=== PATIENT | female | born 1990 | race Caucasian/White ===

== ENCOUNTER 2017-07-26 14:15 | Emergency (ER) | payer OTHER, SELFPAY | END 2017-07-26 16:42 | disposition home or self-care (01) | PROVIDERS: Emergency Provider Emergency Medicine; Visit Provider Emergency Medicine | DX: M51.36 Other intervertebral disc degeneration, lumbar region (principal) | CPT/HCPCS: 51798; 96372; 99283; J1885 ==

== ENCOUNTER → 2017-10-09 11:49 | Outpatient (CLI) | payer OTHER, SELFPAY ==
--- NOTE | 2017-10-09 | DI.MRI.S_ITS ---
PROCEDURE: MR LUMBAR SPINE WO CON INDICATIONS: LUMBAR DISC HERNIATION TECHNIQUE: Noncontrast sagittal T1 spin echo and T2 fast echo, sagittal STIR, axial T1 and T2 fast spin echo through the lumbar spine. In cases with scoliosis, additional coronal T2 fast spin echo may be performed. COMPARISON: [facility] [place], CR, XR LUMBAR SPINE WITH OLBIQUES PLUS FLEXION EXTENSION, 08/21/2017, 7:59. [facility] Outside Film, MR, MR LUMBAR SPINE WITHOUT CONTRAST, 06/29/2017, 14:15. FINDINGS: Image quality: Excellent. Alignment and Curvature: There is normal bony alignment. Bone Marrow: Marrow is of normal overall signal. No acute vertebral body compression fractures. Spinal Cord: Conus medullaris terminates at the L1-L2 level. Visualized cord demonstrates normal signal and size. Paraspinous Soft Tissues: No paravertebral masses. L1-L2: Normal appearance. L2-L3: Normal appearance. L3-L4: Normal appearance of intervertebral disc. Mild bilateral facet arthropathy. No central canal or foraminal stenosis. L4-L5: Mild to moderate loss of disc height and disc desiccation. There is posterior disc bulge and posterior central annular tear. Mild bilateral facet arthropathy. The central canal is mildly narrowed. Mild bilateral foraminal stenosis. There is no significant change from 06/29/2017. L5-S1: Preserved disc height and disc signal. There is mild posterior disc bulge. Epidural lipomatosis The central canal is patent. No foraminal stenosis.. IMPRESSION: 1. Degenerative disc disease and facet arthropathy in lumbar spine as described. 2. There is posterior disc bulge and posterior central annular tear at L4-L5 as seen on the outside comparison MRI dated 06/29/17. 3. Mild central canal stenosis at L4-L5, unchanged. 4. Mild bilateral foraminal stenosis at L4-L5, unchanged. 5. Epidural lipomatosis and sacrum. Dictated by: Leroy Ly M.D. on 10/09/2017 at 13:08 Approved by: Leroy Ly M.D. on 10/09/2017 at 13:17
== END ==
PROVIDERS: Visit Provider Orthopaedic Surgery
DX: M51.26 Other intervertebral disc displacement, lumbar region (principal); M51.36 Other intervertebral disc degeneration, lumbar region; M47.816 Spondylosis without myelopathy or radiculopathy, lumbar region; M48.061 Spinal stenosis, lumbar region without neurogenic claudication
CPT/HCPCS: 72148

== ENCOUNTER 2017-11-29 08:14 | Emergency (ER) | payer OTHER, SELFPAY ==
--- NOTE | 2017-11-29 08:30 | ED.FEMALEGU ---
HPI - Female Genitourinary General Chief complaint: Urogenital-Female Stated complaint: KIDNEY INFEC GETTING WORSE Time Seen by Provider: 11/29/17 08:17 Source: patient Mode of arrival: ambulatory Limitations: no limitations History of Present Illness HPI Narrative: 27-year-old healthy female presents to the emergency department with a chief complaint of a kidney infection which is not improving. The patient was seen and evaluated at [facility] on Sunday and given a prescription for Bactrim for presumed UTI. She had a follow-up appointment in the emergency department 2 days later when she started developing some nausea. She presents today because she now has chills and ongoing pain as well as nausea. She denies classic urinary symptoms such as dysuria, frequency or urgency. She recently had her IUD removed and teacher of the emotionally disturbed believe she has interstitial cystitis as well MD Complaint: dysuria and UTI Onset (ago): minute(s) Related Data Home Medications Medication Instructions Recorded Confirmed gabapentin 1 cap PO TID PRN 11/29/17 11/29/17 hydrocodone-acetaminophen 1 tab PO PRN PRN 11/29/17 11/29/17 norethindrone-e.estradiol-iron 1 tab PO DAILY 11/29/17 11/29/17 [ FE ()] sertraline 100 mg PO DAILY 11/29/17 11/29/17 sulfamethoxazole-trimethoprim 1 tab PO BID 11/29/17 11/29/17 Previous Rx's Medication Instructions Recorded hydrocodone-acetaminophen 1 tab PO Q4-6H PRN #14 tab 11/29/17 ibuprofen 600 mg PO TID-QID PRN #20 tab 11/29/17 ondansetron [Zofran ODT] 4 mg PO Q6H PRN #14 tab 11/29/17 Allergies Allergy/AdvReac Type Severity Reaction Status Date / Time cefaclor [From CECLOR] AdvReac Intermediate rash Unverified 07/26/17 14:22 Review of Systems Review of Systems All systems reviewed & are unremarkable except as noted in HPI and below Constitutional Denies chills, Denies fever(s), Denies lethargy and Denies weakness Eyes Denies change in vision, Denies eye discharge, Denies irritation and Denies loss of vision ENT Ears, Nose, Mouth, and Throat: Denies change in voice, Denies neck pain and Denies sore throat Cardiovascular Denies chest pain, Denies irregular heart rhythm, Denies lightheadedness, Denies palpitations, Denies dyspnea, Denies dyspnea on exertion and Denies orthopnea Respiratory Denies cough, Denies dyspnea, Denies dyspnea on exertion and Denies wheezing Gastrointestinal Gastrointestinal: Denies abdominal pain, Denies change in bowel habits, Denies diarrhea, Denies nausea and Denies vomiting Genitourinary Denies hematuria, Reports flank pain, Denies urinary incontinence and Denies urinary urgency Musculoskeletal Denies neck pain Integumentary/Breasts Denies pruritus, Denies erythema, Denies rash and Denies wounds Neurologic Denies confusion, Denies loss of vision and Denies weakness Psychiatric Denies anxiety, Denies confusion, Denies depression, Denies homicidal ideation and Denies suicidal ideation Endocrine Denies palpitations Hematologic/Lymphatic Denies easy bruising Allergic/Immunologic Denies wheezing PFSH Social History Smoking Status: Never smoker Exam Initial Vital Signs Initial Vital Signs: Vital Signs Pulse Rate 66 11/29/17 11:41 Respiratory Rate 15 11/29/17 11:41 Blood Pressure 129/65 H 11/29/17 11:41 Pulse Oximetry 100 11/29/17 11:41 Const General: cooperative and well developed Nutritional Appearance: well nourished Orientation: alert, awake, oriented x3 and not confused [facility] Head: normocephalic and atraumatic Ears: external ears normal and TM's normal bilaterally Nose: external nose normal and No nasal discharge Face and sinus: sinuses nontender, face symmetric, no sinus tenderness and No dry mucous membranes Mouth: oral mucosae normal and moist mucous membranes Teeth and gingiva: dentition normal Throat: tonsils normal and uvula midline Eyes General: appearance normal, both eyes and all related structures Eyelids: eyelids normal Conjunctivae: conjunctivae normal Sclera: sclerae normal Pupils: PERRL EOM: EOM intact bilaterally Neck Neck: normal visual inspection, trachea midline, No lymphadenopathy, No midline deformity and No JVD Lymphatic: No lymphedema Chest Chest: normal inspection of the chest Resp Effort & Inspection: normal respiratory effort, able to speak in complete sentences, no respiratory distress and no use of accessory muscles Auscultation: clear to auscultation bilaterally, no rales, no rhonchi and no wheezes Cardio Rate: regular rate Rhythm: regular rhythm Heart Sounds: no click, no gallops, no murmurs and no rubs Pulses: normal peripheral pulses GI Inspection: non-distended Palpation: soft, no hepatosplenomegaly, No guarding, No pulsatile mass and No tender Auscultation: normal bowel sounds Back/Spine/Pelvis Back: CVA tenderness Cervical Spine: cervical ROM normal and No pain with cervical ROM Thoracic/Lumbar Spine: thoracic and lumbar spine normal to inspection Skin General: no rashes or lesions noted, No jaundice and No petechiae Neuro General: alert, oriented x3, gait normal and no focal motor deficits Speech: speech normal Extrem General: full ROM, no clubbing, cyanosis or edema, no pedal edema and no calf tenderness Psych Appearance: well kempt Mental Status: mental status grossly normal Attitude: cooperative Thought Content: normal and suicidality Judgment: judgment good Course Orders Ordered: ED Orders 11/29/17 10:42 US renal complete Stat Discontinued Medications Sodium Chloride (Normal Saline 0.9%) 1,000 mls @ 1,000 mls/hr IV BOLUS ONE Stop: 11/29/17 10:15 Last Infusion: 11/29/17 12:52 Dose: 0 mls/hr Admin: 11/29/17 09:45 Dose: 1,000 mls/hr Ketorolac Tromethamine (Toradol) 15 mg IV NOW ONE Stop: 11/29/17 09:17 Last Admin: 11/29/17 09:46 Dose: 15 mg Ondansetron HCl (Zofran) 4 mg IV Q4HR PRN PRN Reason: Nausea And Vomiting Last Admin: 11/29/17 09:46 Dose: 4 mg Vital Signs - 8 hr 11/29/17 11:41 11/29/17 12:53 Pulse Rate 66 75 Respiratory Rate 15 16 Blood Pressure 127/80 H Blood Pressure [Right Arm] 129/65 H Pulse Oximetry 100 100 MDM - Female Genitourinary Lab Data Result diagrams: 11/29/17 09:48 11/29/17 09:48 Lab Results 11/29/17 11/29/17 11/29/17 Range/Units 08:30 09:48 09:48 WBC 4.7 (4.5-11.0) X10^3/uL RBC 4.27 (4.0-5.2) X10^6/uL Hgb 12.3 (12.0-16.0) g/dL Hct 35.9 L (36-46) % MCV 84.1 (80-100) fL MCH 28.8 (26-34) PG MCHC 34.2 (30-36) % RDW 13.8 (11.6-14.8) % Plt Count 288 (150-400) X10^3/uL Neut % (Auto) 68.3 (50-75) % Lymph % (Auto) 22.9 L (25-40) % [place] % (Auto) 7.7 (3-14) % Eos % (Auto) 0.6 L (2-4) % Baso % (Auto) 0.5 (0-2) % Neut # (Auto) 3200 (8676-2954) /uL Sodium (137-145) mmol/L Potassium (3.4-5.1) mmol/L Chloride (98-107) mmol/L Carbon Dioxide (22-32) mmol/L BUN (7-17) mg/dL Creatinine (0.52-1.04) mg/dL Estimated GFR (>60) mL/min BUN/Creatinine Ratio (6-22) Glucose (70-100) mg/dL Lactate (0.7-2.1) mmol/L Calcium (8.4-10.2) mg/dL Procalcitonin < 0.05 (<0.5) ng/mL Urine RBC 30-100/hpf H (0-5/HPF) Urine WBC 1-5/hpf (0-5/HPF) Ur Squamous Epith Cells 0-1 /hpf Urine Bacteria None seen (None) Ur Culture Indicated? Specimen cultured Micro UA Comment Not Reportable 11/29/17 11/29/17 Range/Units 09:48 09:48 WBC (4.5-11.0) X10^3/uL RBC (4.0-5.2) X10^6/uL Hgb (12.0-16.0) g/dL Hct (36-46) % MCV (80-100) fL MCH (26-34) PG MCHC (30-36) % RDW (11.6-14.8) % Plt Count (150-400) X10^3/uL Neut % (Auto) (50-75) % Lymph % (Auto) (25-40) % [place] % (Auto) (3-14) % Eos % (Auto) (2-4) % Baso % (Auto) (0-2) % Neut # (Auto) (3209-7571) /uL Sodium 136 L (137-145) mmol/L Potassium 4.5 (3.4-5.1) mmol/L Chloride 102 (98-107) mmol/L Carbon Dioxide 27 (22-32) mmol/L BUN 12 (7-17) mg/dL Creatinine 0.70 (0.52-1.04) mg/dL Estimated GFR > 60.0 (>60) mL/min BUN/Creatinine Ratio 17.1 (6-22) Glucose 82 (70-100) mg/dL Lactate < 0.5 L (0.7-2.1) mmol/L Calcium 9.0 (8.4-10.2) mg/dL Procalcitonin (<0.5) ng/mL Urine RBC (0-5/HPF) Urine WBC (0-5/HPF) Ur Squamous Epith Cells Urine Bacteria (None) Ur Culture Indicated? Micro UA Comment Discharge Plan Departure Patient Disposition: Home Clinical Impression: Pyelonephritis, Hematuria Discharge Date/Time: 11/29/17 12:53 Interventions: ED Discharge Assessment Last Done: 11/29/17 12:53 Instructions: DI for Kidney Infection Activity Restrictions/Additional Instructions: *You have been diagnosed with [ flank pain with hematuria, presumed pyelonephritis ] *What to do: *Take medications as directed *Follow up with your primary care provider in 2-3 days, call for an appointment. Let them know you were seen in the Emergency Department and that we ask that you be seen in follow up *Return to ER if you should have any new, worsening or concerning symptoms Prescriptions: New hydrocodone-acetaminophen 5-325 mg tablet 1 tab PO Q4-6H PRN (Reason: pain) Qty: 14 RF: 0 ibuprofen 600 mg tablet 600 mg PO TID-QID PRN (Reason: pain) Qty: 20 RF: 0 ondansetron [Zofran ODT] 4 mg tablet,disintegrating 4 mg PO Q6H PRN (Reason: nausea and vomiting) Qty: 14 RF: 0 No Action norethindrone-e.estradiol-iron [Junel FE 1.5/30 (28)] 1.5 mg-30 mcg (21)/75 mg (7) tablet 1 tab PO DAILY RF: 0 hydrocodone-acetaminophen 5-325 mg tablet 1 tab PO PRN PRN (Reason: Pain, Moderate) RF: 0 sulfamethoxazole-trimethoprim 800-160 mg tablet 1 tab PO BID RF: 0 gabapentin 300 mg capsule 1 cap PO TID PRN (Reason: spinal stenosis) RF: 0 sertraline 50 mg tablet 100 mg PO DAILY RF: 0 Referrals: Eli Duncan MD [Physician] - Stand Alone Forms: Work/School Restrictions
[2017-11-29 08:35] VITALS: BMI 29.7
[2017-11-29 09:18] LABS: Bacteria Urine None Seen
[2017-11-29 09:26] LABS: Culture Indicated Urine Specimen Cultured; RBC Urine 30-100/HPF (0-5/HPF); Squamous Epithelial Cell Urine 0-1 /HPF; WBC Urine 1-5/HPF (0-5/HPF)
[2017-11-29] MEDS: SODIUM CHLORIDE 0.9% 1,000 ML 1000 ML IV (09:45)
[2017-11-29] MEDS: ONDANSETRON 4 MG/2 ML INJ IV (09:46)
[2017-11-29] MEDS: KETOROLAC 60 MG/2 ML VIAL 15 MG IV (09:46)
[2017-11-29 10:01] LABS: Add Manual Diff / Slide Review NO; Basophils Percent Auto 0.5 % (0-2); Eosinophils Percent Auto 0.6 % (2-4); Hematocrit 35.9 % (36-46); Hemoglobin 12.3 g/dL (12.0-16.0); Lymphocytes Percent Auto 22.9 % (25-40); Mean Corpuscular HGB Conc 34.2 % (30-36); Mean Corpuscular Hemoglobin 28.8 PG (26-34); Mean Corpuscular Volume 84.1 fL (80-100); Monocytes Percent Auto 7.7 % (3-14); Neutrophils Absolute Auto 3200 /uL (3000-5900); Neutrophils Percent Auto 68.3 % (50-75); Platelet Count 288 X10^3/uL (150-400); Red Blood Cell Count 4.27 X10^6/uL (4.0-5.2); Red Cell Distribution Width 13.8 % (11.6-14.8); White Blood Cell Count 4.7 X10^3/uL (4.5-11.0)
[2017-11-29 10:11] LABS: BUN Creatinine Ratio 17.1 (6-22); Blood Urea Nitrogen 12 mg/dL (7-17); Carbon Dioxide 27 mmol/L (22-32); Chloride 102 mmol/L (98-107); Estimated Glomerular Filt Rate > 60.0 mL/min (>60); Glucose 82 mg/dL (70-100); HEMOLYSIS < 15 (0-50); Potassium 4.5 mmol/L (3.4-5.1); Sodium 136 mmol/L (137-145)
[2017-11-29 10:12] LABS: Lactate (Lactic Acid) < 0.5 mmol/L (0.7-2.1)
--- NOTE | 2017-11-29 10:42 | DI.US.S_ITS ---
PROCEDURE: US RENAL COMPLETE INDICATIONS: PAIN, HEMATURIA TECHNIQUE: Real-time scanning was performed of the kidneys and bladder, with image documentation. COMPARISON: None. FINDINGS: Kidneys: Kidneys are normal in size. Right kidney measures 11.8 cm long; left kidney measures 11.6 cm long. Right renal cortical thickness is 2.1 cm; left renal cortical thickness is 2.1 cm. Renal cortical echotexture is normal. No hydronephrosis or nephrolithiasis. No suspicious solid mass lesions. Bladder: Pre-void bladder volume is 213 mL. Post-void residual is 0 mL. Pre-void images demonstrate no intraluminal masses or stones. On pre-void images, neither ureteral jets are noted with color Doppler interrogation. (Of note, ureteral jets may not be detectable in up to 25% of cases due to insufficient differences in specific gravity between ureteral and bladder urine). Miscellaneous: No free pelvic fluid. IMPRESSION: No hydronephrosis or nephrolithiasis found. Normal bladder function. Source of current pain and reported hematuria is not seen. Depending on the clinical status followup by CT scanning may be warranted. However, if a urinary tract infection is present it does not appear associated with obstruction. Dictated by: Med Adams M.D. on 11/29/2017 at 11:18 Approved by: Med Adams M.D. on 11/29/2017 at 11:19
[2017-11-29 10:53] LABS: Procalcitonin < 0.05 ng/mL (<0.5)
[2017-11-29 11:41] VITALS: BP 129/65; PULSE 66; RESP 15; O2SAT 100
[2017-11-29 12:53] VITALS: BP 127/80; PULSE 75; RESP 16; O2SAT 100
== END 2017-11-29 12:53 | disposition home or self-care (01) ==
PROVIDERS: Emergency Provider Emergency Medicine
DX: N12 Tubulo-interstitial nephritis, not specified as acute or chronic (principal); R31.9 Hematuria, unspecified
CPT/HCPCS: 36415; 36591; 76770; 80048; 81003; 81015; 81025; 83605; 84145; 85025; 87086; 96361; 96374; 96375; 99283; 99284; J1885; J2405

== ENCOUNTER 2018-01-25 17:57 | Emergency (ER) | payer OTHER, SELFPAY ==
[2018-01-25 18:08] VITALS: BP 138/83; PULSE 84; RESP 14; TEMP 36.8; O2SAT 98; BMI 30.5
--- NOTE | 2018-01-25 18:33 | DI.CT.S_ITS ---
PROCEDURE: CT KIDNEY URETER BLADDER (KUB) INDICATIONS: left flank pain TECHNIQUE: Noncontrast 5 mm thick sections acquired from the diaphragms to the symphysis. 5 mm thick coronal and sagittal reformats were then performed. For radiation dose reduction, the following was used: automated exposure control, adjustment of mA and/or kV according to patient size. COMPARISON: [facility] Outside Film, CT, CT ABDOMEN PELVIS WITH CONTRAST ENTEROGRAPHY, 03/21/2017, 19:17. FINDINGS: Image quality: Excellent. Lung bases: There is mild dependent atelectasis bilaterally. Heart size is normal. Urinary system: Both kidneys are normal in size. No kidney stones. No hydronephrosis or perinephric fat stranding. Both ureters appear non-dilated throughout their expected courses. Bladder wall thickness is normal; no calcified bladder stones. Other solid organs: Noncontrast evaluation of the liver demonstrates no focal hepatic lesions. Gallbladder is surgically absent. Pancreas is normal in contours. Spleen is normal in size. No adrenal nodules. Peritoneum and bowel: Unenhanced bowel loops demonstrate normal wall thickness and caliber. No evidence of appendicitis or diverticulitis. No free fluid or air. Nodes and vessels: No retroperitoneal or mesenteric adenopathy by size criteria. Aorta and inferior vena cava are normal in caliber. Abdominal wall: No ventral hernias. Pelvis: No free pelvic fluid. No inguinal hernias or adenopathy. Bones: No suspicious bony lesions. No vertebral body compression fractures. IMPRESSION: 1. No definite acute intra-abdominal abnormality. Specifically, no evidence of nephrolithiasis or hydronephrosis. Dictated by: Yvon Pandey M.D. on 01/25/2018 at 20:16 Approved by: Yvon Pandey M.D. on 01/25/2018 at 20:19
--- NOTE | 2018-01-25 18:35 | ED.ABDPAIN ---
HPI - Abdominal Pain General Chief Complaint: Abdominal Pain Stated Complaint: ABD PAIN,NAUSEA Time Seen by Provider: 01/25/18 18:23 Source: patient Mode of arrival: ambulatory Limitations: no limitations History of Present Illness HPI narrative: patient is a 28-year-old female who presents with left flank and groin pain. She says been ongoing for the last 2 days she feels nauseous she has vomited a few times. She has interstitial cystitis in usually cannot tell if she has UTI. On she has not had fever or night sweats. Pain does intensify at certain times. Her last kidney infection was about 6 weeks ago. She feels as though this may be the same. Related Data Home Medications Medication Instructions Recorded Confirmed gabapentin 1 cap PO TID PRN 11/29/17 11/29/17 hydrocodone-acetaminophen 1 tab PO PRN PRN 11/29/17 11/29/17 norethindrone-e.estradiol-iron 1 tab PO DAILY 11/29/17 11/29/17 [ ()] sertraline 100 mg PO DAILY 11/29/17 11/29/17 sulfamethoxazole-trimethoprim 1 tab PO BID 11/29/17 11/29/17 Previous Rx's Medication Instructions Recorded hydrocodone-acetaminophen 1 tab PO Q4-6H PRN #14 tab 11/29/17 ibuprofen 600 mg PO TID-QID PRN #20 tab 11/29/17 ondansetron [Zofran ODT] 4 mg PO Q6H PRN #14 tab 11/29/17 ondansetron [Zofran ODT] 4 mg PO Q6-8H PRN #10 tab 01/25/18 sulfamethoxazole-trimethoprim 1 tab PO Q12H #14 tab 01/25/18 [Bactrim DS] Allergies Allergy/AdvReac Type Severity Reaction Status Date / Time cefaclor [From [facility]] AdvReac Intermediate rash Verified 01/25/18 18:11 Review of Systems Review of Systems GENERAL: Denies chills, fatigue, malaise, fever, sweats, travel HEENT: Denies sinus pain, ear pain, sore throat, difficulty swallowing, neck pain RESPIRATORY: Denies dyspnea, cough, wheezing, hemoptysis, sputum. CARDIOVASCULAR: Denies chest pain, palpitations, orthopnea, edema GASTROINTESTINAL: Denies nausea, vomiting, abdominal pain, diarrhea, constipation, melena. : See HPI MUSCULOSKELETAL: Denies weakness, joint pain, or bony pain SKIN: No rash, no erythema, no pruritus NEUROLOGIC: Denies weakness, dizziness, headache, numbness, change in speech, confusion PSYCHIATRIC: No concerning psychosocial issues. 12 point review of systems is negative except for those stated above and HPI [facility] Social History Smoking Status: Never smoker Exam Initial Vital Signs Initial Vital Signs: Vital Signs Temperature 98.2 F 01/25/18 18:08 Pulse Rate 84 01/25/18 18:08 Respiratory Rate 14 01/25/18 18:08 Blood Pressure 138/83 01/25/18 18:08 Pulse Oximetry 98 01/25/18 18:08 GENERAL: Well-appearing, well-nourished and in no acute distress. HEENT: Head atraumatic,EOMI, pupils reactive, face symmetric, moist mucous membranes CARDIOVASCULAR: Regular rate and rhythm without murmurs, rubs or gallops. RESPIRATORY: Breath sounds equal bilaterally, no wheezes rales or rhonchi. ABDOMEN: Soft, mild left lower quadrant pain no guarding or rebound : Mild left CVA tenderness EXTREMITIES: Normal range of motion, no clubbing or edema. Neurovascularly intact NEUROLOGICAL: Alert and oriented x4.Normal gait and speech. Cranial nerves II through XII grossly intact. SKIN: Warm, dry, no laceration, no petechiae, no rashes or lesions. Course Orders Ordered: ED Orders 01/25/18 18:30 Test Serum,Qual Stat Urine Culture Stat Urine Microscopic Stat 01/25/18 18:33 CT kidney ureter bladder (KUB) Stat 01/25/18 18:50 Complete Blood Count AUTO DIFF Stat Comprehensive Metabolic Panel Stat Lipase Stat Discontinued Medications Sodium Chloride (Normal Saline 0.9%) 1,000 mls @ 1,000 mls/hr IV CONT NATY Last Infusion: 01/25/18 20:05 Dose: 0 mls/hr Admin: 01/25/18 18:54 Dose: 1,000 mls/hr Ketorolac Tromethamine (Toradol) 30 mg IV NOW ONE Stop: 01/25/18 18:34 Last Admin: 01/25/18 18:58 Dose: 30 mg Ondansetron HCl (Zofran) 4 mg IV NOW ONE Stop: 01/25/18 18:34 Last Admin: 01/25/18 18:59 Dose: 4 mg Trimethoprim/Sulfamethoxazole (Bactrim Ds Prepack) 1 bottle MISC SEEINSTR ONE Stop: 01/25/18 20:48 Last Admin: 01/25/18 21:10 Dose: 1 bottle Vital Signs - 8 hr 01/25/18 18:08 01/25/18 19:46 01/25/18 20:00 Temperature 98.2 F Pulse Rate 84 74 71 Respiratory Rate 14 16 Blood Pressure 138/83 Blood Pressure [Right Arm] 131/72 131/82 Pulse Oximetry 98 100 99 01/25/18 21:10 Temperature 98.4 F Pulse Rate 79 Respiratory Rate 16 Blood Pressure 131/82 Blood Pressure [Right Arm] Pulse Oximetry 98 MDM - Abdominal Pain Lab Data Attestation: I reviewed the patient's lab results. Result diagrams: 01/25/18 18:50 01/25/18 18:50 Lab Results 01/25/18 01/25/18 01/25/18 Range/Units 18:30 18:30 18:50 WBC 5.9 (4.5-11.0) X10^3/uL RBC 4.43 (4.0-5.2) X10^6/uL Hgb 12.6 (12.0-16.0) g/dL Hct 37.7 (36-46) % MCV 85.0 (80-100) fL MCH 28.5 (26-34) PG MCHC 33.6 (30-36) % RDW 13.7 (11.6-14.8) % Plt Count 317 (150-400) X10^3/uL Neut % (Auto) 65.3 (50-75) % Lymph % (Auto) 24.1 L (25-40) % Walsh % (Auto) 9.4 (3-14) % Eos % (Auto) 0.9 L (2-4) % Baso % (Auto) 0.3 (0-2) % Neut # (Auto) 3800 (6740-6255) /uL Sodium (137-145) mmol/L Potassium (3.4-5.1) mmol/L Chloride (98-107) mmol/L Carbon Dioxide (22-32) mmol/L BUN (7-17) mg/dL Creatinine (0.52-1.04) mg/dL Estimated GFR (>60) mL/min BUN/Creatinine Ratio (6-22) Glucose (70-100) mg/dL Calcium (8.4-10.2) mg/dL Total Bilirubin (0.2-1.3) mg/dL AST (14-36) IU/L ALT (9-52) IU/L Alkaline Phosphatase (38-126) U/L Total Protein (6.3-8.2) g/dL Albumin (3.5-5.0) g/dL Globulin (1.7-4.1) g/dL Albumin/Globulin Ratio (1.0-2.8) Lipase (23-300) U/L Serum , Qual Negative (Negative) Urine RBC None seen (0-5/HPF) Urine WBC 5-10/hpf H (0-5/HPF) Ur Squamous Epith Cells 1-5 /hpf Urine Bacteria Few (2-10) H (None) Urine Mucus 1+ H (Negative) Ur Culture Indicated? Specimen cultured Micro UA Comment Not Reportable 01/25/18 Range/Units 18:50 WBC (4.5-11.0) X10^3/uL RBC (4.0-5.2) X10^6/uL Hgb (12.0-16.0) g/dL Hct (36-46) % MCV (80-100) fL MCH (26-34) PG MCHC (30-36) % RDW (11.6-14.8) % Plt Count (150-400) X10^3/uL Neut % (Auto) (50-75) % Lymph % (Auto) (25-40) % Walsh % (Auto) (3-14) % Eos % (Auto) (2-4) % Baso % (Auto) (0-2) % Neut # (Auto) (3790-5268) /uL Sodium 139 (137-145) mmol/L Potassium 3.7 (3.4-5.1) mmol/L Chloride 103 (98-107) mmol/L Carbon Dioxide 28 (22-32) mmol/L BUN 13 (7-17) mg/dL Creatinine 0.70 (0.52-1.04) mg/dL Estimated GFR > 60.0 (>60) mL/min BUN/Creatinine Ratio 18.6 (6-22) Glucose 91 (70-100) mg/dL Calcium 8.8 (8.4-10.2) mg/dL Total Bilirubin 0.2 (0.2-1.3) mg/dL AST 36 (14-36) IU/L ALT 46 (9-52) IU/L Alkaline Phosphatase 67 (38-126) U/L Total Protein 6.9 (6.3-8.2) g/dL Albumin 3.7 (3.5-5.0) g/dL Globulin 3.2 (1.7-4.1) g/dL Albumin/Globulin Ratio 1.2 (1.0-2.8) Lipase 114 (23-300) U/L Serum , Qual (Negative) Urine RBC (0-5/HPF) Urine WBC (0-5/HPF) Ur Squamous Epith Cells Urine Bacteria (None) Urine Mucus (Negative) Ur Culture Indicated? Micro UA Comment Point of care testing: Urine Dip Bedside Urine Glucose Negative Bedside Urine Bilirubin - Negative Bedside Urine Ketone +/- 5 Urine Specific [place] 1.030 Bedside Urine Occult Blood - Negative Bedside Urine pH 6.0 Bedside Urine Protein - Negative Bedside Urine Urobilinogen - Negative Bedside Urine Nitrite - Negative Bedside Urine Leukocytes +/- [address] scan - abdomen: Radiologist's impression: PROCEDURE: CT KIDNEY URETER BLADDER (KUB) INDICATIONS: left flank pain TECHNIQUE: Noncontrast 5 mm thick sections acquired from the diaphragms to the symphysis. 5 mm thick coronal and sagittal reformats were then performed. For radiation dose reduction, the following was used: automated exposure control, adjustment of mA and/or kV according to patient size. COMPARISON: [facility] Outside Film, CT, CT ABDOMEN PELVIS WITH CONTRAST ENTEROGRAPHY, 03/21/2017, 19:17. FINDINGS: Image quality: Excellent. Lung bases: There is mild dependent atelectasis bilaterally. Heart size is normal. Urinary system: Both kidneys are normal in size. No kidney stones. No hydronephrosis or perinephric fat stranding. Both ureters appear non-dilated throughout their expected courses. Bladder wall thickness is normal; no calcified bladder stones. Other solid organs: Noncontrast evaluation of the liver demonstrates no focal hepatic lesions. Gallbladder is surgically absent. Pancreas is normal in contours. Spleen is normal in size. No adrenal nodules. Peritoneum and bowel: Unenhanced bowel loops demonstrate normal wall thickness and caliber. No evidence of appendicitis or diverticulitis. No free fluid or air. Nodes and vessels: No retroperitoneal or mesenteric adenopathy by size criteria. Aorta and inferior vena cava are normal in caliber. Abdominal wall: No ventral hernias. Pelvis: No free pelvic fluid. No inguinal hernias or adenopathy. Bones: No suspicious bony lesions. No vertebral body compression fractures. IMPRESSION: 1. No definite acute intra-abdominal abnormality. Specifically, no evidence of nephrolithiasis or hydronephrosis. Dictated by: Yvon Pandey M.D. on 01/25/2018 at 20:16 Approved by: Yvon Pandey M.D. on 01/25/2018 at 20:19 [facility] Narrative Medical decision making narrative: Patient overall is feeling somewhat better. Discussed antibiotics versus waiting for culture. She says this is how she feels when she has a kidney infection she would like to start antibiotics. She is not appear septic. Discharge Plan Departure Patient Disposition: Home Clinical Impression: UTI (urinary tract infection) Discharge Date/Time: 01/25/18 21:17 Interventions: ED Discharge Assessment Last Done: 01/25/18 21:10 Instructions: DI for Kidney Infection Activity Restrictions/Additional Instructions: *You have been diagnosed with Kidney infection *What to do: blood work and CT scan reassuring *Continue to take medications as directed: Faxed to [facility] Bactrim 1 tablet twice a day for 1 week Zofran and 1 tablet every 6-8 hours if needed for nausea or vomiting *Follow up with your primary care provider in 2-3 days *Return to ER if you should have increasing pain, persistent vomiting, fever or any new, worsening or concerning symptoms Prescriptions: New sulfamethoxazole-trimethoprim [Bactrim DS] 800-160 mg tablet 1 tab PO Q12H Qty: 14 RF: 0 ondansetron [Zofran ODT] 4 mg tablet,disintegrating 4 mg PO Q6-8H PRN (Reason: nausea and vomiting) Qty: 10 RF: 0 No Action norethindrone-e.estradiol-iron [Junel FE 1.5/30 (28)] 1.5 mg-30 mcg (21)/75 mg (7) tablet 1 tab PO DAILY RF: 0 hydrocodone-acetaminophen 5-325 mg tablet 1 tab PO PRN PRN (Reason: Pain, Moderate) RF: 0 sulfamethoxazole-trimethoprim 800-160 mg tablet 1 tab PO BID RF: 0 gabapentin 300 mg capsule 1 cap PO TID PRN (Reason: spinal stenosis) RF: 0 sertraline 50 mg tablet 100 mg PO DAILY RF: 0 hydrocodone-acetaminophen 5-325 mg tablet 1 tab PO Q4-6H PRN (Reason: pain) Qty: 14 RF: 0 ibuprofen 600 mg tablet 600 mg PO TID-QID PRN (Reason: pain) Qty: 20 RF: 0 ondansetron [Zofran ODT] 4 mg tablet,disintegrating 4 mg PO Q6H PRN (Reason: nausea and vomiting) Qty: 14 RF: 0 Referrals: Lenard Sims [Primary Care Provider] -
[2018-01-25] MEDS: SODIUM CHLORIDE 0.9% 1,000 ML 1000 ML IV (18:54)
[2018-01-25] MEDS: KETOROLAC 60 MG/2 ML VIAL 30 MG IV (18:58)
[2018-01-25] MEDS: ONDANSETRON 4 MG/2 ML INJ IV (18:59)
[2018-01-25 19:09] LABS: Add Manual Diff / Slide Review NO; Basophils Percent Auto 0.3 % (0-2); Eosinophils Percent Auto 0.9 % (2-4); Hematocrit 37.7 % (36-46); Hemoglobin 12.6 g/dL (12.0-16.0); Lymphocytes Percent Auto 24.1 % (25-40); Mean Corpuscular HGB Conc 33.6 % (30-36); Mean Corpuscular Hemoglobin 28.5 PG (26-34); Monocytes Percent Auto 9.4 % (3-14); Neutrophils Absolute Auto 3800 /uL (3000-5900); Neutrophils Percent Auto 65.3 % (50-75); Platelet Count 317 X10^3/uL (150-400); Red Blood Cell Count 4.43 X10^6/uL (4.0-5.2); Red Cell Distribution Width 13.7 % (11.6-14.8); White Blood Cell Count 5.9 X10^3/uL (4.5-11.0)
[2018-01-25 19:22] LABS: Pregnancy Test Serum,Qual Negative (Negative)
[2018-01-25 19:23] LABS: Alanine Aminotransferase 46 IU/L (9-52); Albumin 3.7 g/dL (3.5-5.0); Albumin Globulin Ratio 1.2 (1.0-2.8); Alkaline Phosphatase 67 U/L (38-126); Aspartate Aminotransferase 36 IU/L (14-36); BUN Creatinine Ratio 18.6 (6-22); Bilirubin Total 0.2 mg/dL (0.2-1.3); Blood Urea Nitrogen 13 mg/dL (7-17); Calcium 8.8 mg/dL (8.4-10.2); Carbon Dioxide 28 mmol/L (22-32); Chloride 103 mmol/L (98-107); Estimated Glomerular Filt Rate > 60.0 mL/min (>60); Globulin 3.2 g/dL (1.7-4.1); Glucose 91 mg/dL (70-100); HEMOLYSIS < 15 (0-50); Lipase 114 U/L (23-300); Potassium 3.7 mmol/L (3.4-5.1); Sodium 139 mmol/L (137-145); Total Protein 6.9 g/dL (6.3-8.2)
[2018-01-25 19:46] VITALS: BP 131/72; PULSE 74; RESP 16; O2SAT 100
[2018-01-25 20:00] VITALS: BP 131/82; PULSE 71; O2SAT 99
[2018-01-25 20:50] LABS: RBC Urine None Seen (0-5/HPF)
[2018-01-25 21:04] LABS: Bacteria Urine Few (2-10); Squamous Epithelial Cell Urine 1-5 /HPF; WBC Urine 5-10/HPF (0-5/HPF)
[2018-01-25 21:05] LABS: Culture Indicated Urine Specimen Cultured; Mucus Urine 1+ (Negative)
[2018-01-25 21:10] VITALS: BP 131/82; PULSE 79; RESP 16; TEMP 36.9; O2SAT 98
[2018-01-25] MEDS: TRIMETH/SULFA 160/800 PREPACK 1 BOTTLE MISC (21:10)
== END 2018-01-25 21:17 | disposition home or self-care (01) ==
PROVIDERS: Emergency Provider Emergency Medicine; PCP Radiology Diagnostic Radiology
DX: N39.0 Urinary tract infection, site not specified (principal)
CPT/HCPCS: 74176; 80053; 81003; 81015; 83690; 84703; 85025; 87077; 87086; 96361; 96374; 96375; 99283; 99284; J1885; J2405

== ENCOUNTER 2018-12-24 12:00 | Emergency (ER) | payer OTHER, SELFPAY ==
[2018-12-24 12:17] VITALS: BP 130/104; PULSE 94; RESP 13; TEMP 36.6; O2SAT 99
[2018-12-24 12:37] LABS: Add Manual Diff / Slide Review NO; Basophils Absolute Auto 0 /uL (0-100); Basophils Percent Auto 0.4 % (0-2); Eosinophils Absolute Auto 100 /uL (0-450); Hematocrit 38.5 % (36-46); Hemoglobin 12.9 g/dL (12.0-16.0); Lymphocytes Absolute Auto 1400 /uL (1100-4500); Lymphocytes Percent Auto 18.6 % (25-40); Mean Corpuscular HGB Conc 33.5 % (30-36); Mean Corpuscular Hemoglobin 28.3 PG (26-34); Mean Corpuscular Volume 84.5 fL (80-100); Monocytes Absolute Auto 500 /uL (0-900); Monocytes Percent Auto 6.2 % (3-14); Neutrophils Absolute Auto 5400 /uL (1500-7000); Neutrophils Percent Auto 73.8 % (50-75); Platelet Count 309 X10^3/uL (150-400); Red Blood Cell Count 4.56 X10^6/uL (4.0-5.2); Red Cell Distribution Width 13.7 % (11.6-14.8); White Blood Cell Count 7.3 X10^3/uL (4.5-11.0)
[2018-12-24] MEDS: ONDANSETRON 4 MG/2 ML INJ IV (12:41)
[2018-12-24] MEDS: SODIUM CHLORIDE 0.9% 1,000 ML 1000 ML IV (12:42)
[2018-12-24 12:51] LABS: BUN Creatinine Ratio 15.7 (6-22); Blood Urea Nitrogen 11 mg/dL (7-17); Carbon Dioxide 24 mmol/L (22-32); Chloride 105 mmol/L (98-107); Estimated Glomerular Filt Rate > 60.0 mL/min (>60); Glucose 79 mg/dL (70-100); HEMOLYSIS < 15 (0-50); Potassium 3.7 mmol/L (3.4-5.1); Sodium 138 mmol/L (137-145)
[2018-12-24] MEDS: KETOROLAC 60 MG/2 ML VIAL 30 MG IV (13:07)
--- NOTE | 2018-12-24 13:26 | ED_ITS ---
HPI - Headache <SURESH Jovel - Last Filed: 12/24/18 23:28> General Chief Complaint: Headache Stated Complaint: Spinal Headache, 6 days, vomitting, dizzy Time Seen by Provider: 12/24/18 12:12 Source: patient Mode of arrival: ambulatory Limitations: no limitations History of Present Illness HPI Narrative: This is a 28-year-old female [employer], nonsmoker, who presents to ED with her co-worker with spinal headache. Patient reports she received epidural spinal injection at L4-L5 about a week ago as [facility] secondary to her chronic back pain. She reports she has history of degenerative disease in her spine and spinal stenosis. Due to this, she has slight weakness to her right leg but denies new changes or increasing weakness. She denies fever, chills, vomiting. She denies urinary or stool incontinence. Patient reports posterior headache, neck stiffness and tightness, increasing nausea and dizziness with changing in position from lying down to sitting up or standing. Patient reports she noticed headache after the procedure and it has been lingering and there is no big changes in severity at this time. Last LMP mid November and patient has IUD in placed. Related Data Home Medications Medication Instructions Recorded Confirmed gabapentin 1 cap PO TID PRN 11/29/17 12/24/18 norethindrone-e.estradiol-iron 1 tab PO DAILY 11/29/17 11/29/17 [ ()] albuterol sulfate [ProAir HFA] 1 puff INHALATION PRN PRN 12/24/18 12/24/18 clonazepam 0.5 mg PO BID 12/24/18 12/24/18 diclofenac sodium 50 mg PO BID 12/24/18 12/24/18 meloxicam 15 mg PO DAILY 12/24/18 12/24/18 oxycodone-acetaminophen 1 tab PO Q4-6H PRN 12/24/18 12/24/18 sertraline 250 mg PO DAILY 12/24/18 12/24/18 sumatriptan succinate 25 mg PO PRN PRN 12/24/18 12/24/18 topiramate 50 mg PO BID 12/24/18 trazodone 50 mg PO BEDTIME 12/24/18 12/24/18 Previous Rx's Medication Instructions Recorded rwmxrljslj-bhyvsukvtwzxd-gxyz 1 cap PO Q6H PRN #7 cap 12/24/18 [Fioricet] Allergies Allergy/AdvReac Type Severity Reaction Status Date / Time Penicillins Allergy Intermediate Verified 12/24/18 12:22 cefaclor [From CECLOR] AdvReac Intermediate rash Verified 01/25/18 18:11 Review of Systems <SURESH Jovel - Last Filed: 12/24/18 23:28> Review of Systems Narrative: General: Denies fever, chills, fatigue, malaise, sweats. HEENT: Denies sinus pain, ear pain, sore throat, difficulty swallowing, dizziness. Respiratory: Denies dyspnea, cough, wheezing, hemoptysis, sputum. Cardiovascular: Denies chest pain, palpitations, orthopnea, edema. Gastrointestinal: Reports nausea. Denies vomiting, abdominal pain, diarrhea, constipation, melena. : Denies dysuria, frequency, incontinence, hematuria, urinary retention. Musculoskeletal: Reports chronic right-sided back pain which has not been changed. Skin: Denies rash, warmth, drainage, skin lesions, or other in her lower back. Neurologic: Reports posterior headache, dizziness. Denies new weakness, numbness, change in speech, confusion, seizures, incoordination. Psychiatric: No concerning psychosocial issues. 12-point review of systems is negative except for those stated above. PFSH <SURESH Jovel - Last Filed: 12/24/18 23:28> Surgical History History of cholecystectomy (Acute) Social History Smoking Status: Never smoker Social History Smoking Status: Never smoker Exam <SURESH Jovel - Last Filed: 12/24/18 23:28> Narrative Exam Narrative: GEN: Alert, oriented x 3, well appearing and nourished, and in no acute distress. Head: Normal cephalic, atraumatic. No scalp or temporal tenderness, palpable mass or rash. EYES: Pupils are equal, round, and reactive to light and accommodation. Extraocular muscles are intact bilaterally. There is no subconjunctival h emorrhage, exudate and sclera non-icteric. ENT: Hearing grossly intact. Nose without bleeding, purulent discharge or deviation. Mucous membrane moist, no mucosal lesion. Throat without erythema, tonsillar hypertrophy or exudate. Uvula in midline, airway patent. Neck: Trachea in midline. No JVD, non-tender without lymphadenopathy. No masses or thyroid megaly. Supple, non-tender and no meningeal signs. CARDIAC: Normal regular rate and rhythm without murmurs, gallops, or rubs. No chest wall tenderness. No peripheral edema, cyanosis or pallor. Capillary refill is less than 2 seconds. RESPIRATORY: Lungs are cleat to auscultate bilaterally. No cough, wheezes, rales, or rhonchi. No stridor, respiratory distress, increase work of breathing, or accessary muscle used. ABD: Abdomen soft, nontender and non-distended. No guarding or rebound tenderness to palpate. Bowel sounds are normal in all 4 quadrants. There is no palpable masses or organomegaly. EXT: Full painless ROM of all extremities with no loss of sensation, strength, effusion or edema. Right lower extremity strength slightly decreased as compared to left side. PTR +2 bilaterally. SKIN: Warm, dry, normal color for patient. No erythema, lesions or rash over visible areas. BACK: Tender to palpate on right lower back without deformity, warmth, redness, swelling. Nontender without deformity or crepitance in the other areas. NEUROLOGICAL: Alert and oriented to place, time and person. Sensation and motor function intact bilaterally. No facial droops, dysphasia. PSYCHIATRIC: Good judgement and reason, without hallucinations, abnormal affect or abnormal behaviors during the examination. Patient is not suicidal. Initial Vital Signs Initial Vital Signs: Vital Signs Temperature 97.8 F 12/24/18 12:17 Pulse Rate 94 H 12/24/18 12:17 Respiratory Rate 13 12/24/18 12:17 Blood Pressure 130/104 H 12/24/18 12:17 Pulse Oximetry 99 12/24/18 12:17 <Neha Luna, - Last Filed: 12/27/18 19:17> Initial Vital Signs Initial Vital Signs: Vital Signs Temperature 97.8 F 12/24/18 12:17 Pulse Rate 94 H 12/24/18 12:17 Respiratory Rate 13 12/24/18 12:17 Blood Pressure 130/104 H 12/24/18 12:17 Pulse Oximetry 99 12/24/18 12:17 Course <SURESH Jovel - Last Filed: 12/24/18 23:28> Orders Ordered: Discontinued Medications Acetaminophen/Butalbital/Caffeine (Fioricet) 2 each PO NOW ONE Stop: 12/24/18 13:56 Last Admin: 12/24/18 14:13 Dose: 2 each Documented by: LUPIS Sodium Chloride (Normal Saline 0.9%) 1,000 mls @ 1,000 mls/hr IV BOLUS ONE Stop: 12/24/18 13:26 Last Infusion: 12/24/18 14:12 Dose: 0 mls/hr Documented by: Admin: 12/24/18 12:42 Dose: 1,000 mls/hr Documented by: LUPIS Ketorolac Tromethamine (Toradol) 30 mg IV NOW ONE Stop: 12/24/18 12:52 Last Admin: 12/24/18 13:07 Dose: 30 mg Documented by: LUPIS Ondansetron HCl (Zofran) 4 mg IV NOW ONE Stop: 12/24/18 12:28 Last Admin: 12/24/18 12:41 Dose: 4 mg Documented by: LUPIS Vital Signs Vital signs: Vital Signs - 8 hr 12/24/18 12:17 Temperature 97.8 F Pulse Rate 94 H Respiratory Rate 13 Blood Pressure 130/104 H Pulse Oximetry 99 <Neha Luna DO - Last Filed: 12/27/18 19:17> Orders Ordered: Discontinued Medications Acetaminophen/Butalbital/Caffeine (Fioricet) 2 each PO NOW ONE Stop: 12/24/18 13:56 Last Admin: 12/24/18 14:13 Dose: 2 each Documented by: LUPIS Sodium Chloride (Normal Saline 0.9%) 1,000 mls @ 1,000 mls/hr IV BOLUS ONE Stop: 12/24/18 13:26 Last Infusion: 12/24/18 14:12 Dose: 0 mls/hr Documented by: Admin: 12/24/18 12:42 Dose: 1,000 mls/hr Documented by: LUPIS Ketorolac Tromethamine (Toradol) 30 mg IV NOW ONE Stop: 12/24/18 12:52 Last Admin: 12/24/18 13:07 Dose: 30 mg Documented by: LUPIS Ondansetron HCl (Zofran) 4 mg IV NOW ONE Stop: 12/24/18 12:28 Last Admin: 12/24/18 12:41 Dose: 4 mg Documented by: LUPIS Vital Signs Vital signs: Vital Signs - 8 hr 12/24/18 12:17 Temperature 97.8 F Pulse Rate 94 H Respiratory Rate 13 Blood Pressure 130/104 H Pulse Oximetry 99 MDM - Headache <Tai Rich-MARIA ELENA DíazP - Last Filed: 12/24/18 23:28> Differential Diagnosis Differential diagnosis: Likely migraine, headache and other (post spinal headaches, spinal abscess, kidney infection) Medical Records Attestation: I reviewed the patient's medical records. Lab Data Attestation: I reviewed the patient's lab results. Result diagrams: 12/24/18 12:23 12/24/18 12:23 Labs: Lab Results 12/24/18 12/24/18 Range/Units 12:23 12:23 WBC 7.3 (4.5-11.0) X10^3/uL RBC 4.56 (4.0-5.2) X10^6/uL Hgb 12.9 (12.0-16.0) g/dL Hct 38.5 (36-46) % MCV 84.5 (80-100) fL MCH 28.3 (26-34) PG MCHC 33.5 (30-36) % RDW 13.7 (11.6-14.8) % Plt Count 309 (150-400) X10^3/uL Neut % (Auto) 73.8 (50-75) % Lymph % (Auto) 18.6 L (25-40) % [place] % (Auto) 6.2 (3-14) % Eos % (Auto) 1.0 L (2-4) % Baso % (Auto) 0.4 (0-2) % Neut # (Auto) 5400 (9685-5604) /uL Lymph # (Auto) 1400 (5517-6074) /uL [place] # (Auto) 500 (0-900) /uL Eos # (Auto) 100 (0-450) /uL Baso # (Auto) 0 (0-100) /uL Sodium 138 (137-145) mmol/L Potassium 3.7 (3.4-5.1) mmol/L Chloride 105 (98-107) mmol/L Carbon Dioxide 24 (22-32) mmol/L BUN 11 (7-17) mg/dL Creatinine 0.70 (0.52-1.04) mg/dL Estimated GFR > 60.0 (>60) mL/min BUN/Creatinine Ratio 15.7 (6-22) Glucose 79 (70-100) mg/dL Calcium 9.0 (8.4-10.2) mg/dL MDM Narrative Medical decision making narrative: This patient presents to ED with epidural headache after she had the epidural injection in L4-L5 region about a week ago at the orthopedic office for her chronic back pain. Since then, patient states her headache has been lingering with dizziness associated with changing position from supine to sitting and standing and nausea. Patient denies new or changes in her strength and sensation of lower extremity, bladder stool incontinence, saddle anesthesia, high fever or chills, urinary symptoms. The patient was also seen at [facility] in the ED 2 days ago and had an evaluation and treatment. Today's lab tests were unremarkable. Today, patient was treated with IV fluid of normal and Zofran and Toradol which had not improved her headache much. After additional dose of Fioricet, patient reports her headache has improved nausea is better. Patient advised with aggressive hydration and to restart gabapentin that she had not scrap picker the prescription yet and to use Fioricet sparingly as needed. Patient advised to follow up with her primary care physician, orthopedics office with her headache. Strict return precautions were discussed such as neurological symptoms, epidural abscess, worsening headache and patient verbalized the understanding and agrees with treatment plan. No further questions were expressed at this time. <Neha Luna, DO - Last Filed: 12/27/18 19:17> Lab Data Labs: Lab Results 12/24/18 12/24/18 Range/Units 12:23 12:23 WBC 7.3 (4.5-11.0) X10^3/uL RBC 4.56 (4.0-5.2) X10^6/uL Hgb 12.9 (12.0-16.0) g/dL Hct 38.5 (36-46) % MCV 84.5 (80-100) fL MCH 28.3 (26-34) PG MCHC 33.5 (30-36) % RDW 13.7 (11.6-14.8) % Plt Count 309 (150-400) X10^3/uL Neut % (Auto) 73.8 (50-75) % Lymph % (Auto) 18.6 L (25-40) % [place] % (Auto) 6.2 (3-14) % Eos % (Auto) 1.0 L (2-4) % Baso % (Auto) 0.4 (0-2) % Neut # (Auto) 5400 (2566-3602) /uL Lymph # (Auto) 1400 (1343-1181) /uL [place] # (Auto) 500 (0-900) /uL Eos # (Auto) 100 (0-450) /uL Baso # (Auto) 0 (0-100) /uL Sodium 138 (137-145) mmol/L Potassium 3.7 (3.4-5.1) mmol/L Chloride 105 (98-107) mmol/L Carbon Dioxide 24 (22-32) mmol/L BUN 11 (7-17) mg/dL Creatinine 0.70 (0.52-1.04) mg/dL Estimated GFR > 60.0 (>60) mL/min BUN/Creatinine Ratio 15.7 (6-22) Glucose 79 (70-100) mg/dL Calcium 9.0 (8.4-10.2) mg/dL Discharge Plan Departure Patient Disposition: Home Clinical Impression: Headache Qualifiers: Headache type: other headache syndrome Qualified Code(s): G44.89 - Other headache syndrome Discharge Date/Time: 12/24/18 15:16 Activity Restrictions/Additional Instructions: You have been diagnosed with [headache probably associated with the epidural procedure. Your lab tests today were unremarkable. You were treated with IV anti nausea medication, IV fluid, NSAIDs and Fioricet pills which helped her headache]. What to do: *Take your medications as directed. The Fioricet may make you sleepy and drowsy so please do not drive, drink alcohol, operate heavy equipments. You can continue to take NSAIDs, Tylenol and please restart taking gabapentin. *Follow up with your primary care provider and orthopedic clinic in 2-3 days, call for an appointment. Let them know you were seen in the ED and that we asked you to be seen in follow up. *Return to ED if you have any new, worsening, or concerning symptoms, such as [fever, chills, increasing nausea vomiting, severe headache and dizziness, chest pain, breathing difficulty, feeling fainting, severe back pain, incontinence problem, increasing weakness to her legs, or any acute concerns]. Prescriptions: New ptzkftkigr-xqivymzzneojz-oypi [Fioricet] 50-300-40 mg capsule 1 cap PO Q6H PRN (Reason: pain) Qty: 7 RF: 0 No Action Junel FE 1.5/30 (28) 1.5 mg-30 mcg (21)/75 mg (7) tablet 1 tab PO DAILY RF: 0 gabapentin 300 mg capsule 1 cap PO TID PRN (Reason: spinal stenosis) RF: 0 meloxicam 15 mg tablet 15 mg PO DAILY RF: 0 sumatriptan succinate 25 mg tablet 25 mg PO PRN PRN (Reason: Migraine Headache) RF: 0 clonazepam 0.5 mg tablet 0.5 mg PO BID RF: 0 sertraline 100 mg tablet 250 mg PO DAILY RF: 0 oxycodone-acetaminophen 5-325 mg tablet 1 tab PO Q4-6H PRN (Reason: pain) RF: 0 diclofenac sodium 50 mg tablet,delayed release (DR/EC) 50 mg PO BID RF: 0 albuterol sulfate [ProAir HFA] 90 mcg/actuation HFA aerosol inhaler 1 puff INHALATION PRN PRN (Reason: Shortness Of Breath) RF: 0 topiramate 50 mg tablet 50 mg PO BID RF: 0 trazodone 50 mg tablet 50 mg PO BEDTIME RF: 0 Referrals: [facility] [Outside] Lenard Sims [Primary Care Provider] - Stand Alone Forms: Work Release Note
[2018-12-24] MEDS: BUTALB/APAP/CAFFEINE 50/325/40 TABLET 2 EACH PO (14:13)
[2018-12-24 14:15] VITALS: BP 134/103; PULSE 79; RESP 18; O2SAT 100
== END 2018-12-24 15:16 | disposition home or self-care (01) ==
PROVIDERS: Emergency Provider Nurse Practitioner Family; PCP Radiology Diagnostic Radiology
DX: G44.89 Other headache syndrome (principal)
CPT/HCPCS: 36591; 80048; 85025; 96361; 96374; 96375; 99283; 99284; J1885; J2405

== ENCOUNTER → 2019-01-06 09:09 | Outpatient (CLI) | payer OTHER, SELFPAY ==
--- NOTE | 2019-01-06 | DI.MRI.S_ITS ---
PROCEDURE: MR CERVICAL SPINE WO CON INDICATIONS: HEADACHE,CERVICALGIA TECHNIQUE: Noncontrast sagittal T1 spin echo and T2 fast spin echo, sagittal STIR, foraminal oblique sagittal T2 fast spin echo, and axial gradient echo or T2 fast spin echo through the cervical spine. COMPARISON: None. FINDINGS: Image quality: Excellent. Alignment and Curvature: There is loss of normal cervical lordosis. Bone Marrow: Marrow demonstrates normal overall signal. Spinal Cord: Visualized spinal cord has normal size and signal. No cerebellar tonsillar herniation. Paraspinous Soft Tissues: No paravertebral masses. Prevertebral soft tissues are normal in thickness. C2-C3: Normal appearance. C3-C4: Normal appearance. C4-C5: Mild disc desiccation. Minimal diffuse disc bulge. Mild left uncovertebral hypertrophy. No significant canal stenosis. Mild left foraminal stenosis. C5-C6: Mild disc desiccation. Minimal diffuse disc bulge. No significant canal, nor foraminal stenosis. C6-C7: Mild disc desiccation. No significant canal, nor foraminal stenosis. C7-T1: Normal appearance. IMPRESSION: 1. Mild multilevel degenerative disc and facet disease, as well as uncovertebral hypertrophy, without significant associated canal, nor foraminal stenosis. No neural impingement. 2. Loss of normal cervical lordosis, consistent with muscle spasm. Dictated by: Rani Wilkins M.D. on 01/06/2019 at 10:48 Approved by: Rani Wilkins M.D. on 01/06/2019 at 10:50
--- NOTE | 2019-01-06 | DI.MRI.S_ITS ---
PROCEDURE: MR HEAD/BRAIN WO CON INDICATIONS: HEADACHE,CERVICALGIA TECHNIQUE: Noncontrast axial T1 spin echo, axial T2 fast spin echo, sagittal and axial FLAIR, coronal T2 fast spin echo, axial gradient echo, axial diffusion and ADC through the brain. COMPARISON: None. FINDINGS: Image quality: Excellent. CSF Spaces: Basal cisterns are patent. No extra-axial fluid collections. Ventricles are normal in size and shape. Brain: No intracranial masses or hemorrhage. Hathaway/white matter interface is normal. Brainstem appears normal. Diffusion-weighted images demonstrate no acute ischemic insult. No chronic ischemic insults. Normal intravascular flow voids are present. Skull and face: Calvarium has normal marrow signal. Orbits appear normal. Sinuses: Sinuses and mastoids are clear. IMPRESSION: 1. No explanation for headache. 2. No acute process. No recent infarct. 3. Negative evaluation of the brain. Dictated by: Rani Wilkins M.D. on 01/06/2019 at 10:43 Approved by: Rani Wilkins M.D. on 01/06/2019 at 10:44
== END ==
PROVIDERS: PCP Radiology Diagnostic Radiology; Visit Provider Pain Medicine Pain Medicine
DX: R51 Headache (principal); M50.321 Other cervical disc degeneration at C4-C5 level
CPT/HCPCS: 70551; 72141